=== PATIENT | male | born 1960 | race Caucasian/White ===

== ENCOUNTER 2024-12-27 20:40 | Emergency (ER) | payer BC, MEDICAID, SELFPAY ==
[2024-12-27] VITALS (9 sets, daily range): BP systolic 75–95; BP diastolic 42–56; PULSE 72–129; RESP 18–98; TEMP 37.3–40.3; O2SAT 96–100; BMI 23.8
--- NOTE | 2024-12-27 20:53 | EKG_ITS ---
[facility] [place] [facility] Test Date: 2024-12-27 Pat Name: JERSON WAYNE Department: Room: - Gender: Male Health Management Consultant: : 1960 Requested By: ED Temporary Provider Order Number: [id number] Reading MD: ED Temporary Provider Measurements Intervals [place] Rate: 127 P: 87 W[place]: 158 QRS: -29 QRSD: 97 T: 53 QT: 296 QTc: 431 Interpretive Statements SINUS TACHYCARDIA BORDERLINE LEFT AXIS DEVIATION [QRS AXIS < -20] ABNORMAL RHYTHM ECG No previous ECG available for comparison /store/S0/[id number]/[id number].pdf
--- NOTE | 2024-12-27 21:06 | XR_ITS ---
EXAMINATION: AP chest single view TECHNIQUE: AP portable semiupright chest single view Date and time: December 27, 2024, 2115 hours INDICATION: Chest pain shortness of breath today. FINDINGS: Normal heart size Lungs are clear. Right Port-A-Cath tip proximal SVC Intact osseous structures with moderate osteoarthritis glenohumeral joints IMPRESSION: No pneumonia or pulmonary edema
--- NOTE | 2024-12-27 21:12 | EDNOTE_ITS ---
ED Syncope RME/HPI General Chief Complaint: Syncope / Near Syncope Stated Complaint: SYNCOPE Time Seen by Provider: 12/27/24 20:58 Arrival date/time: 12/27/24 20:40 64-year-old male patient with significant history of pancreatic cancer, currently on chemotherapy, last chemotherapy given last Sunday, came in for evaluation regarding near syncope. Onset of symptoms earlier today as near- syncope, patient blood pressure was noted to be less than 90 systolic. Patient was also noted to have fever, and tachycardic. Sepsis alert was initiated right away. Patient denies any cough denies any abdominal pain denies any vomiting denies any diarrhea denies any other complaints. Related Data Allergies Allergy/AdvReac Type Severity Reaction Status Date / Time No Known Allergies Allergy Verified 12/27/24 20:45 Review of Systems Review of Systems Narrative Review of Systems: Review of system reviewed and within normal limits except mentioned in HPI ED Exam Narrative Physical exam: VITAL SIGNS: Reviewed. GENERAL APPEARANCE: Alert and interactive, follows commands, no acute distress, febrile, tachycardic HEAD AND FACE: Non-traumatic. ENT: PERRL, pink conjunctivitis, eyelid no trauma, Mucous membrane moist. NECK: Supple, nontender, no nuchal rigidity. CHEST: No tenderness, no crepitus, no paradoxical movement, no retractions. LUNGS: Clear, well ventilated, symmetric, no rales, no wheezing, no ronchi, no stridor, good breath sounds bilaterally. HEART: Regular rate, regular rhythm, no murmur, no gallops. ABDOMEN: Soft, positive bowel sounds, nondistended, no guarding, nontender, no rebound, no masses, RECTAL: Deferred. GENITAL: Deferred. NEUROLOGICAL: Gross motor function intact sensory function intact, Appropriate for age. MUSCULOSKELETAL: low back nontender, full range of motion. EXTREMITIES: Nontender, full range of motion. SKIN: Color pink, dry, no rash, no lacerations, no abrasions, no contusions. LYMPHATICS: Deferred. Course Quality Measures none Orders Category Date Time Status Bedside COVID-19 Antigen Test NOW Care 12/27/24 21:[address] Screening NOW Care 12/27/24 22:09 Completed Business Support Professional STAT Care 12/27/24 21:05 Completed Continuous Pulse Oximetry STAT Care 12/27/24 21:05 Completed EKG (ED ONLY) *Do not use* NOW Care 12/27/24 20:53 Completed EKG (ED ONLY) *Do not use* NOW Care 12/27/24 21:05 Completed In and Out Catheter X1PRN Care 12/27/24 21:05 Completed Insert IV NOW Care 12/27/24 21:05 Completed NPO STAT Care 12/27/24 21:05 Completed Occult Blood,Stool (Nursing) ONCE Care 12/27/24 22:47 Completed Strict Intake and Output Routine Care 12/27/24 21:05 Ordered Transfuse,blood/blood products ONCE Care 12/27/24 22:08 Completed Referral - Employee Operations Examiner Stat Cons 12/28/24 07:41 Active Transfer to another facility [Transfer/Discharge] Stat Discharge 12/28/24 06:[address] chest abdomen pelvis w Stat Exams 12/27/24 22:08 Completed EKG (ED Only) Stat Exams 12/27/24 20:53 Draft EKG (ED Only) Stat Exams 12/27/24 21:05 Ordered US gall bladder Stat Exams 12/28/24 00:00 Completed XR chest 1V SEPSIS PROTOCOL Stat Exams 12/27/24 21:06 Completed B-Type Natriuretic Peptide Stat Lab 12/27/24 21:48 Completed Blood Culture (Lab) Stat Lab 12/27/24 21:48 Completed CBC Stat Lab 12/27/24 21:48 Completed Comprehensive Metabolic Panel Stat Lab 12/27/24 21:48 Completed LDH (Lactate Dehydrogenase) Stat Lab 12/27/24 21:48 Completed Lactate (Lactic Acid) Stat Lab 12/27/24 21:05 Completed Lactic Acid, 3 HR Stat Lab 12/28/24 01:59 Completed Lipase Stat Lab 12/27/24 21:48 Completed Magnesium Stat Lab 12/27/24 21:48 Completed Partial Thromboplastin Time Stat Lab 12/27/24 21:48 Completed Path Review Blood Smear Stat Lab 12/27/24 21:48 Completed Phosphorous Stat Lab 12/27/24 21:48 Completed Procalcitonin Stat Lab 12/27/24 21:48 Completed Prothrombin Time with INR Stat Lab 12/27/24 21:48 Completed Troponin I Stat Lab 12/27/24 21:48 Completed Type and Screen Stat Lab 12/27/24 22:13 Completed Urinalysis, C/S if Indicated Stat Lab 12/27/24 21:50 Completed Urine Culture Stat Lab 12/27/24 21:50 Completed prbc [Red Blood Cells] Stat Lab 12/27/24 22:13 Completed Acetaminophen Ivpb [Ofirmev Inj] Med 12/27/24 21:07 Discontinued 1,000 mg in 100 ml IV X1 Acetaminophen Tab [Tylenol ES Tab] Med 12/28/24 11:26 Discontinued 1,000 mg PO X1 ONE Levofloxacin/D5w 750Mg Ivpb [Levaquin Ivpb] Med 12/28/24 09:06 Discontinued 750 mg in 150 ml IV X1 Magnesium Sulfate 2 GM Ivpb [Magnesium Sulfate Ivpb] Med 12/27/24 23:02 Discontinued 2 gm in 50 ml IV X1 Norepinephrine/D5W 8mg/250ml [Levophed in D5W 8mg/250ml Med 12/27/24 22:46 Discontinued ] 8 mg in 250 ml IV 0.05 mcg/kg/min POTASSIUM CHL 10 mEq IVPB [Kcl Ivpb] Med 12/27/24 23:03 Discontinued 10 meq in 100 ml IV X1 Piper/Tazo 3.375 gm Premix [Zosyn] Med 12/27/24 21:10 Discontinued 3.375 gm in 50 ml IV X1 Potassium Chloride [K-Dur] Med 12/27/24 23:02 Discontinued 40 meq PO X1 ONE Ringers Lactated 1000 ml [Lactated Ringers] 1,000 ml Med 12/27/24 21:08 Discontinued IV 999 mls/hr Ringers Lactated 1000 ml [Lactated Ringers] 1,000 ml Med 12/27/24 21:11 Discontinued IV 999 mls/hr Ringers Lactated 1000 ml [Lactated Ringers] 1,000 ml Med 12/27/24 22:46 Discontinued IV 999 mls/hr cefTRIAXone/D5w 1gm IV premix [Rocephin/D5w 1gm IV Med 12/27/24 21:06 Discontinued premix] 1 gm in 50 ml IV X1 Oxygen Delivery NOW RT 12/27/24 21:05 Completed Vital Signs Vital signs: Vital Signs Temperature 104.5 F H 12/27/24 20:47 Pulse Rate 129 H 12/27/24 20:47 Respiratory Rate 18 12/27/24 20:47 Blood Pressure 95/54 L 12/27/24 20:47 Pulse Oximetry (%) 100 12/27/24 20:47 Oxygen Delivery Method Room Air 12/27/24 20:47 Syncope MDM Narrative MDM Narrative:: 64-year-old male patient with significant history of pancreatic cancer, currently on chemotherapy, last chemotherapy given last Sunday, came in for evaluation regarding near syncope. Onset of symptoms earlier today as near- syncope, patient blood pressure was noted to be less than 90 systolic. Patient was also noted to have fever, and tachycardic. Sepsis alert was initiated right away. Patient denies any cough denies any abdominal pain denies any vomiting denies any diarrhea denies any other complaints. Patient had leukopenia 0.5, hemoglobin of 5.8, hematocrit of 17.5, I did a rectal exam, and negative for occult blood. Patient potassium was noted to be 2.6, sodium 130, carbon dioxide of 18.2 initial lactic acid 6.1 magnesium 1.3 elevated total bili of 3.2, AST of 105 ALT of 123, alkaline phos 412 Pro-Dequan of 36.8, urinalysis positive UTI Patient was given total of 3 L IV fluids, IV Zosyn, IV Tylenol. Latest blood pressure was noted to be 72/42, heart rate of 72 even after 3 L of IV fluids. I started the patient on Levophed. Pending CT scan of the chest abdomen pelvis and ultrasound of the gallbladder. I already spoke with ICU hospitalist, Dr. Villafuerte, who will follow-up on the imaging results. Care transferred to Dr. Montejo for final disposition at 11:15 PM Patient data External records reviewed:: None Clinical information provided by:: patient and family Social determinants that could affect healthcare access:: none Patient has the following chronic illnesses:: Pancreatic cancer currently on chemo How is presenting disease/condition affected by chronic disease/condition?: exacerbated by Evaluation data The following diagnostics were reviewed and interpreted by me:: lab results, radiology exam(s) and EKG tracing(s) Lab and/or radiology exams considered but not ordered:: None Interpretation Summary: EKG showed sinus tachycardia, ventricular rate of 127 bpm, no ST segment elevation depression noted. Medications / Prescriptions Medications or Prescriptions considered but not ordered:: None Medication administrations:: Medication Administration History Discontinued Medications Acetaminophen (Acetaminophen 500 Mg Tablet) 1,000 mg PO X1 ONE Stop: 12/28/24 11:27 Last Admin: 12/28/24 11:40 Dose: 1,000 mg Documented By: ED Ceftriaxone Sodium/Dextrose (Rocephin/D5w 1gm Iv Premix) 1 gm in 50 mls @ 100 mls/hr IV X1 ONE Stop: 12/27/24 21:35 Last Admin: 12/27/24 21:13 Dose: Not Given Documented By: EE Non-Admin Reason: Cancelled by Provider Acetaminophen (Ofirmev Inj) 1,000 mg in 100 mls @ 250 mls/hr IV X1 ONE Stop: 12/27/24 21:30 Last Infusion: 12/27/24 22:51 Dose: Infused Documented By: Admin: 12/27/24 21:44 Dose: 250 mls/hr Documented By: EE Lactated Ringer's (Lactated Ringers) 1,000 mls @ 999 mls/hr IV .Q1H1M ONE Stop: 12/27/24 22:08 Last Infusion: 12/27/24 22:51 Dose: Infused Documented By: Admin: 12/27/24 21:44 Dose: 999 mls/hr Documented By: EE Piperacillin/Tazobactam/Dextrose (Zosyn) 3.375 gm in 50 mls @ 100 mls/hr IV X1 ONE; Protocol Stop: 12/27/24 21:39 Last Infusion: 12/27/24 22:51 Dose: Infused Documented By: Admin: 12/27/24 21:45 Dose: 100 mls/hr Documented By: EE Lactated Ringer's (Lactated Ringers) 1,000 mls @ 999 mls/hr IV .Q1H1M ONE Stop: 12/27/24 22:11 Last Infusion: 12/27/24 22:51 Dose: Infused Documented By: Admin: 12/27/24 21:46 Dose: 999 mls/hr Documented By: EE Norepinephrine/Dextrose (Levophed In D5w 8mg/250ml) 8 mg in 250 mls @ 6.464 mls/hr IV .Q24H PRN; Protocol PRN Reason: PER PROTOCOL Stop: 01/26/25 22:45 Last Titration: 12/28/24 14:00 Dose: 0.07 mcg/kg/min, 9.049 mls/hr Documented By: Titration: 12/28/24 13:45 Dose: 0.07 mcg/kg/min, 9.049 mls/hr Documented By: Titration: 12/28/24 13:30 Dose: 0.07 mcg/kg/min, 9.049 mls/hr Documented By: Titration: 12/28/24 13:15 Dose: 0.07 mcg/kg/min, 9.049 mls/hr Documented By: Titration: 12/28/24 13:00 Dose: 0.07 mcg/kg/min, 9.049 mls/hr Documented By: Titration: 12/28/24 12:45 Dose: 0.09 mcg/kg/min, 11.635 mls/hr Documented By: Titration: 12/28/24 12:30 Dose: 0.09 mcg/kg/min, 11.635 mls/hr Documented By: Titration: 12/28/24 12:15 Dose: 0.09 mcg/kg/min, 11.635 mls/hr Documented By: Titration: 12/28/24 12:00 Dose: 0.09 mcg/kg/min, 11.635 mls/hr Documented By: Titration: 12/28/24 11:45 Dose: 0.09 mcg/kg/min, 11.635 mls/hr Documented By: Titration: 12/28/24 11:30 Dose: 0.11 mcg/kg/min, 14.22 mls/hr Documented By: Titration: 12/28/24 11:15 Dose: 0.11 mcg/kg/min, 14.22 mls/hr Documented By: Titration: 12/28/24 11:00 Dose: 0.11 mcg/kg/min, 14.22 mls/hr Documented By: Titration: 12/28/24 10:45 Dose: 0.11 mcg/kg/min, 14.22 mls/hr Documented By: Titration: 12/28/24 10:30 Dose: 0.11 mcg/kg/min, 14.22 mls/hr Documented By: Titration: 12/28/24 10:15 Dose: 0.11 mcg/kg/min, 14.22 mls/hr Documented By: Titration: 12/28/24 10:00 Dose: 0.11 mcg/kg/min, 14.22 mls/hr Documented By: Titration: 12/28/24 09:45 Dose: 0.11 mcg/kg/min, 14.22 mls/hr Documented By: Titration: 12/28/24 09:30 Dose: 0.11 mcg/kg/min, 14.22 mls/hr Documented By: Titration: 12/28/24 09:15 Dose: 0.11 mcg/kg/min, 14.22 mls/hr Documented By: Titration: 12/28/24 09:00 Dose: 0.11 mcg/kg/min, 14.22 mls/hr Documented By: Titration: 12/28/24 08:45 Dose: 0.11 mcg/kg/min, 14.22 mls/hr Documented By: Titration: 12/28/24 08:30 Dose: 0.11 mcg/kg/min, 14.22 mls/hr Documented By: Titration: 12/28/24 08:15 Dose: 0.11 mcg/kg/min, 14.22 mls/hr Documented By: Titration: 12/28/24 08:00 Dose: 0.11 mcg/kg/min, 14.22 mls/hr Documented By: Titration: 12/28/24 07:45 Dose: 0.11 mcg/kg/min, 14.22 mls/hr Documented By: Titration: 12/28/24 07:30 Dose: 0.11 mcg/kg/min, 14.22 mls/hr Documented By: Titration: 12/28/24 07:15 Dose: 0.11 mcg/kg/min, 14.22 mls/hr Documented By: Titration: 12/28/24 07:00 Dose: 0.11 mcg/kg/min, 14.22 mls/hr Documented By: Titration: 12/28/24 06:45 Dose: 0.11 mcg/kg/min, 14.22 mls/hr Documented By: Titration: 12/28/24 06:30 Dose: 0.11 mcg/kg/min, 14.22 mls/hr Documented By: Titration: 12/28/24 06:15 Dose: 0.13 mcg/kg/min, 16.806 mls/hr Documented By: Titration: 12/28/24 06:00 Dose: 0.15 mcg/kg/min, 19.391 mls/hr Documented By: Titration: 12/28/24 05:45 Dose: 0.17 mcg/kg/min, 21.977 mls/hr Documented By: Titration: 12/28/24 05:30 Dose: 0.19 mcg/kg/min, 24.562 mls/hr Documented By: Titration: 12/28/24 05:00 Dose: 0.21 mcg/kg/min, 27.147 mls/hr Documented By: Titration: 12/28/24 04:45 Dose: 0.23 mcg/kg/min, 29.733 mls/hr Documented By: Titration: 12/28/24 04:30 Dose: 0.23 mcg/kg/min, 29.733 mls/hr Documented By: Titration: 12/28/24 04:15 Dose: 0.25 mcg/kg/min, 32.318 mls/hr Documented By: Titration: 12/28/24 04:00 Dose: 0.27 mcg/kg/min, 34.904 mls/hr Documented By: Titration: 12/28/24 03:30 Dose: 0.29 mcg/kg/min, 37.489 mls/hr Documented By: Titration: 12/28/24 03:00 Dose: 0.29 mcg/kg/min, 37.489 mls/hr Documented By: Admin: 12/28/24 02:45 Dose: 0.29 mcg/kg/min, 37.489 mls/hr Documented By: Titration: 12/28/24 02:30 Dose: Infused Documented By: Titration: 12/28/24 01:30 Dose: 0.31 mcg/kg/min, 40.075 mls/hr Documented By: Titration: 12/28/24 01:00 Dose: 0.31 mcg/kg/min, 40.075 mls/hr Documented By: Titration: 12/28/24 00:30 Dose: 0.31 mcg/kg/min, 40.075 mls/hr Documented By: Titration: 12/27/24 23:59 Dose: 0.31 mcg/kg/min, 40.075 mls/hr Documented By: Titration: 12/27/24 23:54 Dose: 0.31 mcg/kg/min, 40.075 mls/hr Documented By: Titration: 12/27/24 23:49 Dose: 0.31 mcg/kg/min, 40.075 mls/hr Documented By: Titration: 12/27/24 23:44 Dose: 0.31 mcg/kg/min, 40.075 mls/hr Documented By: Titration: 12/27/24 23:39 Dose: 0.31 mcg/kg/min, 40.075 mls/hr Documented By: Titration: 12/27/24 23:34 Dose: 0.19 mcg/kg/min, 24.562 mls/hr Documented By: Titration: 12/27/24 23:29 Dose: 0.17 mcg/kg/min, 21.977 mls/hr Documented By: Titration: 12/27/24 23:24 Dose: 0.15 mcg/kg/min, 19.391 mls/hr Documented By: Titration: 12/27/24 23:19 Dose: 0.13 mcg/kg/min, 16.806 mls/hr Documented By: Titration: 12/27/24 23:14 Dose: 0.11 mcg/kg/min, 14.22 mls/hr Documented By: Titration: 12/27/24 23:09 Dose: 0.09 mcg/kg/min, 11.635 mls/hr Documented By: Titration: 12/27/24 23:04 Dose: 0.07 mcg/kg/min, 9.049 mls/hr Documented By: Admin: 12/27/24 22:59 Dose: 0.05 mcg/kg/min, 6.464 mls/hr Documented By: EE Lactated Ringer's (Lactated Ringers) 1,000 mls @ 999 mls/hr IV .Q1H1M ONE Stop: 12/27/24 23:46 Last Infusion: 12/27/24 23:35 Dose: Infused Documented By: Admin: 12/27/24 22:00 Dose: 999 mls/hr Documented By: EE Magnesium Sulfate (Magnesium Sulfate Ivpb) 2 gm in 50 mls @ 25 mls/hr IV X1 ONE Stop: 12/28/24 01:01 Last Infusion: 12/28/24 01:43 Dose: Infused Documented By: Admin: 12/27/24 23:29 Dose: 25 mls/hr Documented By: EE Potassium Chloride (Kcl Ivpb) 10 meq in 100 mls @ 100 mls/hr IV X1 ONE Stop: 12/28/24 00:02 Last Infusion: 12/28/24 00:38 Dose: Infused Documented By: Admin: 12/27/24 23:28 Dose: 100 mls/hr Documented By: EE Levofloxacin/Dextrose (Levaquin Ivpb) 750 mg in 150 mls @ 100 mls/hr IV X1 ONE Stop: 12/28/24 10:35 Last Infusion: 12/28/24 11:21 Dose: Infused Documented By: Admin: 12/28/24 09:51 Dose: 100 mls/hr Documented By: ED Potassium Chloride (Potassium Chloride 20 Meq Tabcr) 40 meq PO X1 ONE Stop: 12/27/24 23:03 Last Admin: 12/27/24 23:29 Dose: 40 meq Documented By: EE See MDM Consultations Consultation(s) initiated? (list below): No Diagnosis Syncope Differential Diagnosis: syncope due to orthostatic hypotension, vasovagal syncope and other (Septic shock) Most likely diagnosis given after review of the tests above:: Septic shock, neutropenic fever, history of pancreatic cancer Admission Indicated Admission indicated?: indicated Explain why admission is indicated or not indicated:: Admitted to ICU Admission Request Was there a request for admission?: Yes Admission Attestation Admission request attestation: Discussed case with [] from Hospitalist service regarding admission. Discussed patients ED course, exam findings, labs, and radiology results. The Hospitalist [agrees,declines] to accept the patient for admission. Disposition Plan Disposition Plan: Admit Discharge Plan Plan Patient Disposition: [facility] Facility Pt Being Transferred to: Other-Specify in comment Service Needed for Transfer: Gastroenterology Discharge Disposition comment: [facility] Prescriptions/Referrals Referrals: Eladio Duran PA-C [Primary Care Provider] - In 1 week Problem List Clinical Impression: Septic shock, Neutropenic fever, History of pancreatic cancer Patient/Caregiver Discharge Instructions Print Language: Macedonian Stand Alone Forms: Rosalba Award Info., Patient Portal Info Letter
[2024-12-27] MEDS: ACETAMINOPHEN IVPB 1,000 MG/100 ML VIAL 250 MG IV (21:44)
[2024-12-27] MEDS: RINGERS LACTATED 1000 ML 1,000 ML 999 ML IV ×3 (21:44→22:00)
[2024-12-27] MEDS: PIPER/TAZO 3.375 GM PREMIX 3.375 GM/50 ML BAG IV (21:45)
[2024-12-27 22:00] LABS: Lactate (Lactic Acid) 6.1 mMol/L (0.4-2.0)
[2024-12-27 22:01] LABS: Basophils # (Auto) 0.0 Thou/mm3 (0.0-0.2); Basophils % (Auto) 0 % (0-2.5); Eosinophils # (Auto) 0.0 Thou/mm3 (0.0-0.5); Eosinophils % (Auto) 0 % (0-10); Immature Granulocytes Auto 0.01 Thou/mm3 (0.00-0.00); Lymphocytes # (Auto) 0.1 Thou/mm3 (1.0-4.8); Lymphocytes % (Auto) 24 % (10-50); Mean Corpuscular HGB Conc 33.1 g/dl (31.0-37.0); Mean Corpuscular Hemoglobin 28.4 pg (25.0-35.0); Mean Corpuscular Volume 86 fL (80-100); Monocytes # (Auto) 0.0 Thou/mm3 (0.0-0.8); Monocytes % (Auto) 6 % (0-12); Neutrophils # (Auto) 0.4 Thou/mm3 (1.8-7.7); Neutrophils % (Auto) 68 % (37-80); Nucleated Red Blood Cell # 0.00 Thou/mm3 (0.00-0.00); Nucleated Red Blood Cell % 0 /100 WBC (0); Platelet Count 83 Thou/mm3 (140-440); RDW Standard Deviation 48.1 fL (35.1-43.9); Red Blood Count 2.04 Miln/mm3 (4.50-5.90)
[2024-12-27 22:04] LABS: Hemoglobin 5.8 g/dL (13.5-16.0)
[2024-12-27 22:05] LABS: Hematocrit 17.5 % (41.0-53.0); White Blood Count 0.5 Thou/mm3 (3.8-10.6)
[2024-12-27 22:06] LABS: Collection Type, Urine Clean Catch
--- NOTE | 2024-12-27 22:08 | XR_ITS ---
Examination: CT chest with intravenous contrast CT abdomen with intravenous contrast CT pelvis with intravenous contrast 2-D coronal and sagittal reconstructions Time of exam: December 28, 2024, 0107 hours INDICATIONS: Sepsis alert, onset fever today unknown etiology CTDI: vol (mGy) : 6.38 DLP: (mGycm): 506 Technique: Multiple axial images of the chest, abdomen and pelvis with intravenous contrast, 3.0 mm slice thickness. Images obtained post intravenous injection Isovue 370 60 cc. 2-D sagittal and coronal reconstructions. Low dose protocols were performed. One or more of the following dose reduction techniques were used; automated exposure control, adjustment of the mA and/or KV according to patient size, use of iterative reconstruction technique. Findings: No thoracic aortic aneurysmal dilatation No pulmonary artery emboli. No pneumonia or pulmonary edema or pleural disease Pneumobilia Intrahepatic biliary tract dilatation especially left lobe of the liver Irregular densities throughout the liver Gallbladder wall thickening with pericholecystic inflammatory change Biliary stent Pancreatic head appears enlarged, axial image 180 Common hepatic duct shows mild wall thickening The common hepatic duct measures at least 10 mm No hydronephrosis 3 cm complex left renal lesion Aortic calcification no aneurysmal dilatation Mild free fluid in the abdomen Appendix is mildly thickened with mild increase in wall dimensions although no obvious inflammatory change Small bowel ileus Focal thickening of the colonic wall, transverse colon near the hepatic flexure, coronal image 52 Normal seminal vesicles AP prostate dimension 3.8 cm No bladder mass, mild bladder wall thickening Prominent osteopenia with significant lumbar and thoracic spondylosis IMPRESSION: Intrahepatic biliary tract dilatation especially left lobe of the liver Subtle irregular densities throughout the liver Enlarged pancreatic head Gallbladder stent is in adequate position Suspicious for cholangitis Consider MRCP follow-up Appendix is mildly thickened although no definite significant inflammatory change, clinical correlation advised Focal thickening of the colonic wall, transverse colon near the hepatic flexure, recommend colonoscopy follow-up to exclude malignant neoplasm of the colon Recommend MRI abdomen kidneys follow-up pre and postcontrast to assess complex left renal lesion
[2024-12-27 22:16] LABS: INR 1.3 (0.9-1.3); Partial Thromboplastin Time 22.1 Seconds (22.0-36.0); Prothrombin Time 13.2 Seconds (9.0-12.2)
[2024-12-27 22:19] LABS: Amorphous Crystals,Urine Present (Absent); Bacteria,Urine Rare; Bilirubin,Urine 1+ (Negative); Blood,Urine Negative (Negative); Clarity,Urine Turbid (Clear/Hazy); Color,Urine Drk-Yellow (Lt Yel-Yel); Culture Indicated,Urine Yes; Glucose, Urine 1+ (Negative); Granular Casts,Urine < 1 /hpf (0-1); Ketones,Urine Negative (Negative); Leukocyte Esterase,Urine Positive (Negative); Nitrite,Urine Negative (Negative); PH,Urine 5.5 (5.0-7.0); Protein,Urine Trace (Neg - Trace); RBC,Urine 2 /hpf (0-3); Specific Gravity,Urine 1.014 (1.001-1.035); Squamous Epithelial Cell,Urine 4 /hpf (0-5); Urobilinogen,Urine 4.0 mg/dL (0.0-1.0); WBC,Urine 14 /hpf (0-5)
[2024-12-27 22:23] LABS: Path Review Blood Smear Sent to Pathologist
[2024-12-27 22:31] LABS: B-Type Natriuretic Peptide 30 pg/mL (0-100)
[2024-12-27 22:43] LABS: Alanine Aminotransferase 123 U/L (10-49); Albumin, Serum 3.2 gm/dL (3.4-4.8); Albumin/Globulin Ratio 1.8 (1.2-2.2); Alkaline Phosphatase 412 U/L (46-116); Anion Gap 16 (7-16); Aspartate Amino Transferase 105 U/L (0-34); BUN/Creatinine Ratio 22 Ratio (12-20); Bilirubin,Total 3.2 mg/dL (0.3-1.2); Blood Urea Nitrogen 22 mg/dL (9-23); Calcium 8.2 mg/dL (8.3-10.6); Calcium (Corrected) 8.8 mg/dL (8.5-10.1); Carbon Dioxide 18.2 mMol/L (20.0-31.0); Chloride 96 mMol/L (98-107); Creatinine (Component) 1.0 mg/dL (0.6-1.3); Estimated Creatinine Clearance 70.7 mL/min (>60); Globulin 1.8 gm/dL (2.3-3.5); Glucose 122 mg/dL (74-106); Lipase 18 U/L (12-53); Magnesium 1.3 mg/dL (1.6-2.6); Osmolality,Calculated 265 (275-295); Procalcitonin 36.81 ng/ml (0.0-0.49); Sodium 130 mMol/L (136-145); Total Protein 5.0 gm/dL (5.7-8.2); Troponin I 0.027 ng/mL (0.0-0.045); eGFR > 60 See Note
[2024-12-27 22:58] LABS: LDH (Lactate Dehydrogenase) 301 U/L (120-246); Phosphorous 1.0 mg/dL (2.4-5.1)
[2024-12-27] MEDS: Norepinephrine/D5W 8mg/250ml 8 MG/250 ML BAG 6.464 MG IV (22:59)
[2024-12-27 23:00] LABS: Potassium 2.6 mMol/L (3.4-5.1)
[2024-12-27] MEDS: POTASSIUM CHL 10 mEq IVPB 10 MEQ/100 ML BAG 100 MEQ IV (23:28)
[2024-12-27] MEDS: Magnesium Sulfate 2 GM Ivpb 2 GM/50 ML BAG IV (23:29)
[2024-12-28] VITALS (13 sets, daily range): BP systolic 90–134; BP diastolic 56–86; PULSE 94–106; RESP 14–20; TEMP 36.6–37.8; O2SAT 96–100
--- NOTE | 2024-12-28 | XR_ITS ---
Examination: Abdomen sonogram, Limited Date and time of exam: December 28, 2024, 0025 hours INDICATIONS: Abdominal pain elevated liver function test on laboratory examination 4 days ago Technique: Real-time simons scale transabdominal sonographic images of the upper abdomen obtained. Findings: Gallbladder sludge Negative for gallstones Gallbladder wall is thickened 0.55 cm Common bile duct enlarged 0.9 cm Pancreatic head 3.0 cm Liver 15.5 cm lobular contour fatty infiltration Normal hepatopetal portal venous flow Patent IVC IMPRESSION: Recommend MRCP follow-up to confirm cholecystitis and to assess the enlarged common bile duct Primary pelvis cellular disease
--- NOTE | 2024-12-28 00:03 | EDNOTE_ITS ---
Emergency Room Addendum Addendum Narrative: 2300: Care assumed from Mark Moore (emergency mid-level provider). Past medical, surgical, social and family history reviewed. Vitals and home medications reviewed. Results and treatment plan discussed. I will assume the care of the patient at this time and will follow the patient, pending Chest/Abdomen/Pelvis CT and transfer. The following addendum documentation note is intended to reflect any pending information, findings, or radiology results not included in the patient?s initial chart by the previous shift scribe. RADIOLOGY Chest/Abdomen/Pelvis CT: Findings: The lungs are clear. There is no pleural effusion or pneumothorax. The aorta is unremarkable without evidence of dissection or aneurysm. No evidence of mediastinal mass or lymphadenopathy. There is no pericardial effusion. The spleen and adrenals are unremarkable. No hydronephrosis. Small right renal simple cyst. Complex lesion in the left kidney measures 3.2 cm. Atrophic pancreas. No pancreatic duct dilation. Fullness in the pancreatic head. Biliary stent in place from the CBD to the duodenum associated with expected pneumobilia. Thickening of the gallbladder wall associated with peripheral fat stranding. Dilated CBD and intrahepatic biliary ducts. Multiple subcentimeter hypodensities in the left liver lobe, a few similar lesions are noted in the right liver lobe. Diverticulosis of the colon. Focal thickening of the colonic wall at the hepatic flexure. No evidence of bowel obstruction. No evidence of appendicitis. The urinary bladder is unremarkable. There is no free fluid or air. Degenerative changes of the imaged portions of the spine. No acute fractures. Impression: 1. Acute cholecystitis. 2. Probable cholangitis. 3. Subcentimeterliver hypodensities, consider metastasis and abscesses in the differential diagnosis. 4. Focal thickening of the colonic wall at the hepatic flexure, possibly functional possibly due to colon cancer, consider correlation with colonoscopy. 5. Fullness in the pancreatic head, further evaluation to assess for pancreatic cancer is recommended. 6. Indeterminate left renal lesion, further evaluation for characterization is recommended. Consider transitional cell carcinoma in the differential diagnosis. Gall Bladder US: Findings: The liver demonstrates heterogenous echogenicity and lobular margins. No gallbladder calculus or pericholecystic fluid is identified. Gallbladder sludge at the neck. Gallbladder wall thickening. The common duct is dilated in caliber at 0.9 cm. No free fluid is demonstrated on the submitted images. The portal vein is patent with hepatopetal flow and normal wave Doppler spectral analysis. Childress sign is not available at the time of this report. Impression: Probable cirrhosis. Dilated CBD suspicious for choledocholithiasis. Correlation with MRCP is recommended. Gallbladder sludge associated with gallbladder wall thickening, suspicious for acute cholecystitis. 0005: Discussed with [facility], for transfer. Reviewed the patient?s HPI, PMHx, lab and/or radiology results. Discussed treatment plan. Will consult an admission to the hospitalist. Assumed care of this pleasant 64 y/o male with Hx stage II Pancreatic CA undgoirng chemotherapy, presented acute febrile illness and near syncopal episode found to be neutropenic and in septic shock. Patient is currently on Levophed infusion notably anemic. Currently receiving packed RBC. Lastly hypokalemic receiving Potassium IV supplement. Patient is awake alert and oriented pending colonoscopy, pending Whipple at [facility]. Will attempt to transfer patient for further evaluation monitoring [facility] treat pending definitive therapy. CT scan of Chest/Abdomen/Pelvis demonstrates choledocolithiasis. No obvious focus of infection at this time. Patient remains relatively hypotensive on Levophed at this time. Will further titrate upward and consider transfer to [facility]. Final diagnoses include septic shock, neutropenic fever, Hx of Pancreatic CA, acute anemia, choledocolithiasis, and hypokalemia. 0542: Discussed with [facility] for transfer. Reviewed the patient?s HPI, PMHx, lab and/or radiology results. Discussed treatment plan. 0600: [facility] declined transfer due to not having requested capabilities. Suggests transfer to [facility], [facility], [facility], and [facility] who do offer necessary services. Care assumed by Dr. Mckinney (emergency physician). Past medical, surgical, social and family history reviewed. Vitals and home medications reviewed. Results and treatment plan discussed. They will assume the care of the patient at this time and will follow the patient, pending transfer.
--- NOTE | 2024-12-28 00:18 | PC.NURSE ---
CALLED [facility] FOR POSSIBLE GI/SEPTIC SHOCK TRANSFER, SPOKE WITH KELLY. SHE WILL CALL BACK
[2024-12-28 00:59] LABS: Reflex Lactate? Y
[2024-12-28 02:18] LABS: Lactic Acid, 3 HR 6.2 mMol/L (0.4-2.0)
--- NOTE | 2024-12-28 02:32 | PRELIM_ITS ---
Gallbladder ultrasound with Doppler and wave Doppler spectral analysis. December 28, 2024 0029 hours Clinical history: Elevated LFTs. Comparison: None available at the time of this report. Findings: The liver demonstrates heterogenous echogenicity and lobular margins. No gallbladder calculus or pericholecystic fluid is identified. Gallbladder sludge at the neck. Gallbladder wall thickening. The common duct is dilated in caliber at 0.9 cm. No free fluid is demonstrated on the submitted images. The portal vein is patent with hepatopetal flow and normal wave Doppler spectral analysis. Childress sign is not available at the time of this report. Impression: Probable cirrhosis. Dilated CBD suspicious for choledocholithiasis. Correlation with MRCP is recommended. Gallbladder sludge associated with gallbladder wall thickening, suspicious for acute cholecystitis. Report Electronically Signed By: Andrew Boucher 12/28/2024 2:31:46 AM [EST]
[2024-12-28] MEDS: Norepinephrine/D5W 8mg/250ml 8 MG/250 ML BAG 37.489 MG IV (02:45)
--- NOTE | 2024-12-28 03:38 | PRELIM_ITS ---
CT scan of the chest, abdomen and pelvis with intravenous contrast (axial sections with sagittal and coronal reformats) December 28, 2024 at 0107 hours Clinical History: Sepsis. Comparison: Correlated with the prior ultrasound study dated December 28, 2024. Findings: The lungs are clear. There is no pleural effusion or pneumothorax. The aorta is unremarkable without evidence of dissection or aneurysm. No evidence of mediastinal mass or lymphadenopathy. There is no pericardial effusion. The spleen and adrenals are unremarkable. No hydronephrosis. Small right renal simple cyst. Complex lesion in the left kidney measures 3.2 cm. Atrophic pancreas. No pancreatic duct dilation. Fullness in the pancreatic head. Biliary stent in place from the CBD to the duodenum associated with expected pneumobilia. Thickening of the gallbladder wall associated with peripheral fat stranding. Dilated CBD and intrahepatic biliary ducts. Multiple subcentimeter hypodensities in the left liver lobe, a few similar lesions are noted in the right liver lobe. Diverticulosis of the colon. Focal thickening of the colonic wall at the hepatic flexure. No evidence of bowel obstruction. No evidence of appendicitis. The urinary bladder is unremarkable. There is no free fluid or air. Degenerative changes of the imaged portions of the spine. No acute fractures. Impression: 1. Acute cholecystitis. 2. Probable cholangitis. 3. Subcentimeterliver hypodensities, consider metastasis and abscesses in the differential diagnosis. 4. Focal thickening of the colonic wall at the hepatic flexure, possibly functional possibly due to colon cancer, consider correlation with colonoscopy. 5. Fullness in the pancreatic head, further evaluation to assess for pancreatic cancer is recommended. 6. Indeterminate left renal lesion, further evaluation for characterization is recommended. Consider transitional cell carcinoma in the differential diagnosis. Report Electronically Signed By: Andrew Boucher 12/28/2024 3:37:54 AM [EST]
--- NOTE | 2024-12-28 04:45 | PC.NURSE ---
DR CORDON GI DR AT [facility] DECLINED TRANSFER STATING PATIENT NEEDS ENDOSCOPIC US WHICH HE DOES NOT DO
--- NOTE | 2024-12-28 05:00 | PC.NURSE ---
[facility] CONTACTED, SPOKE WITH [facility] FOR POSSIBLE GI TRANSFER, PACKET AND IMAGES SENT
--- NOTE | 2024-12-28 06:03 | PC.NURSE ---
[facility] DECLINED STATING PT NEEDS HIGHER LEVEL OF CARE AND SOME WHERE THAT DOES ENDOSCOPIC US, IN [facility]
--- NOTE | 2024-12-28 07:21 | PC.NURSE ---
Pt. here from home to room 7, pt. and spouse are resting, no s/s of distress, pt. states he feels so much better, coffee given to spouse she states thank you.
--- NOTE | 2024-12-28 07:47 | PD.EDADDENDU ---
Emergency Room Addendum Addendum Narrative: 0600: Care assumed from Dr. Montejo, the previous shift emergency physician. Past medical, surgical, social and family history reviewed. Vitals and home medications reviewed. I will assume the care of the patient at this time, pending transfer for GI for EUS (Endoscopic ultrasound). Please refer to the emergency department record for history and examination from initial visit.? Physical exam by me shows patient under no acute distress at this time. 0900: Spoke to Dr. Santiago from [facility]. 1104: [facility] called the nurse here for history. 1300: Dr. Tran from [facility] accepted transfer for GI.
--- NOTE | 2024-12-28 08:32 | PC.CM ---
Addendum entered by Coral Fleming RN 12/28/24 14:56: Patient was transported with [facility]. Addendum entered by Coral Fleming RN 12/28/24 12:54: Patient has been accepted by [facility] with Dr. Edmundo Tran MD. He will be going to unit and Room Number: 7E;?7301A. Telephone Number for Report: [phone]. I will call [facility] and set up transport. Address [address] [place] [id number] Addendum entered by Coral Fleming RN 12/28/24 12:40: 1210 I called [facility] and I initiated a transfer. I faxed over images and I pushed over images. Addendum entered by Coral Fleming RN 12/28/24 11:14: 1105 I received a call from [facility] transfer center. She states they are reviewing all the information that I sent over. Addendum entered by Coral Fleming RN 12/28/24 10:58: 0910 I spoke to the transfer center at [facility] to follow up on transfer request. I faxed over supporting paperwork and I pushed over images via [employer] link that was emailed to me. Original Note: 0810 I received a referral to transfer patient for endoscopic ultrasound and is needing GI services. Patient has a Hx of pancreatic ca. [facility] stating patient needed higher level care for endoscopic ultrasound. They suggested [facility] [place], [facility], and [facility]. Patient was already connected to [facility] for a planned Whipple procedure. I contacted [facility] and initiated a transfer.
[2024-12-28] MEDS: LEVOFLOXACIN/D5W 750MG IVPB 750 MG/150 ML BAG 100 MG IV (09:51)
--- NOTE | 2024-12-28 11:03 | PC.NURSE ---
Maia from [facility] called, all information requested given, Maia states she will present the case to her Doctor and get back to me.
[2024-12-28] MEDS: ACETAMINOPHEN 500 MG TABLET 1000 MG PO (11:40)
--- NOTE | 2024-12-28 13:03 | PC.NURSE ---
called pt.'s Bella [phone] and informed her that pt. was accepted to [facility] Bella Jorge states thank you and then spoke with pt.
== END 2024-12-28 14:25 | disposition short-term general hospital (02) ==
PROVIDERS: Nurse Practitioner Family; Emergency Provider Emergency Medicine; PCP Physician Assistant
DX: A41.50 Gram-negative sepsis, unspecified (principal); R65.21 Severe sepsis with septic shock; D70.9 Neutropenia, unspecified; R50.81 Fever presenting with conditions classified elsewhere; C25.0 Malignant neoplasm of head of pancreas; R07.9 Chest pain, unspecified; R06.02 Shortness of breath; D64.9 Anemia, unspecified; E87.6 Hypokalemia; K81.0 Acute cholecystitis; Z75.1 Person awaiting admission to adequate facility elsewhere
CPT/HCPCS: 36415; 36430; 51701; 71045; 71260; 74177; 76705; 80053; 81001; 83605; 83615; 83690; 83735; 83880; 84100; 84145; 84484; 85025; 85610; 85730; 86850; 86900; 86901; 86923; 87040; 87077; 87086; 87186; 87635; 93005; 96361; 96365; 96366; 99285; A4649; J0131; J1956; J2543; J3475; J3480; J3490; J7120; P9016; Q9967; A9270